=== PATIENT | female | born 1960 | race American Indian/Alaskan Native ===

== ENCOUNTER 2022-02-27 12:25 | Emergency (ER) | payer OTHER, MEDICARE ==
[2022-02-27] MEDS ORDERED: diazePAM 10 MG/2 ML SYRINGE IM ONE (16:34)
[2022-02-27] MEDS ORDERED: KETOROLAC 10 MG TAB PO ONE (16:34)
[2022-02-27] MEDS ORDERED: dexAMETHasone 4 MG/ML VIAL PO ONE (16:34)
--- NOTE | 2022-02-27 17:42 | Emergency Department Report ---
ED Back Pain/Injury HPI - General Chief Complaint: Back Pain/Injury Stated Complaint: BACK PAIN Time Seen by Provider: 02/27/22 15:41 Source: patient Limitations: No Limitations - History of Present Illness Initial Comments: 61-year-old black female with a past medical history of hypertension, hyperlipidemia, prediabetes, mitral valve prolapse, and hypothyroidism presents to the emergency department for evaluation of lower back pain. She states that she was doing some work inside of her closet on Thursday, got up and turned around, then started to have right lower back pains since then. She states that pain radiated down her left leg and was 10 out of 10 and constant. She states that she was seen at [facility] a few days ago, was started on Flexeril and a Medrol Dosepak, had some improvement in the pain for a few days, but pain has returned. She denies any injury or trauma. She denies fever, dysuria, abdominal pain, nausea, vomiting, and vaginal discharge. MD Complaint: back pain -: Gradual, days(s) (6) Similar Symptoms Previously: No Place: home Radiation: left leg Severity: severe Severity scale (0 -10): 10 Quality: aching Consistency: intermittent (States that she only has pain if she twists or bends) Worsens With: movement Associated Symptoms: denies: weakness, difficulty walking, difficulty urinating, diaphoresis, incontinence, fever/chills, headaches, abdominal pain, loss of appetite, malaise, nausea/vomiting, shortness of breath Treatments Prior to Arrival: other (Flexeril and Medrol Dosepak) - Related Data Home Medications Medication Instructions Recorded Confirmed Last Taken Atenolol 50 mg PO DAILY 03/25/15 03/25/15 Unknown Levothyroxine 75 mcg PO DAILY 03/25/15 03/25/15 Unknown Lexapro 20 mg PO DAILY 03/25/15 03/25/15 Unknown Omeprazole 20 mg PO DAILY 03/25/15 03/25/15 Unknown Simvastatin 20 mg PO HS 03/25/15 03/25/15 Unknown Previous Rx's Medication Instructions Recorded Last Taken Type Aspirin [Aspirin BABY CHEW TAB] 81 mg PO QDAY #30 tab.chew 04/15/14 Unknown Rx Ibuprofen [Motrin] 600 mg PO Q8H PRN #30 tablet 04/13/16 Unknown Rx Oxycodone HCl/Acetaminophen 1 each PO Q6HR PRN #20 tablet 04/13/16 Unknown Rx [Percocet 10/325 mg] Lidocaine [Lidoderm] 1 each TP DAILY PRN #10 patch 02/27/22 Unknown Rx Naproxen [Naprosyn] 500 mg PO BID #14 tab 02/27/22 Unknown Rx methOCARBAMOL [Robaxin TAB] 750 mg PO Q8H PRN #30 tab 02/27/22 Unknown Rx Allergies Allergy/AdvReac Type Severity Reaction Status Date / Time neomycin [Neomycin] Allergy Unknown Verified 04/15/14 10:58 ivp dye Allergy Swelling Uncoded 03/25/15 11:46 ED Review of Systems ROS: Stated complaint: BACK PAIN Other details as noted in HPI Comment: All other systems reviewed and negative Constitutional: denies: chills, fever, malaise, weakness Respiratory: denies: shortness of breath Gastrointestinal: denies: abdominal pain, nausea, vomiting Genitourinary: denies: urgency, dysuria, frequency, hematuria, discharge Musculoskeletal: back pain Neurological: denies: headache, weakness, numbness, paresthesias, abnormal gait, vertigo ED Past Medical Hx - Past Medical History Hx Heart Attack/AMI: Yes (MVP) Hx Diabetes: Yes Hx GERD: Yes Hx Psychiatric Treatment: Yes (Depression) Additional medical history: GERD, High Cholesterol, Thyroid Disease - Surgical History Additional Surgical History: Hysterectomy - Social History Smoking Status: Current Every Day Smoker Substance Use Type: None - Medications Home Medications: Home Medications Medication Instructions Recorded Confirmed Last Taken Type Aspirin [Aspirin BABY CHEW TAB] 81 mg PO QDAY #30 tab.chew 04/15/14 03/25/15 Unknown Rx Atenolol 50 mg PO DAILY 03/25/15 03/25/15 Unknown History Levothyroxine 75 mcg PO DAILY 03/25/15 03/25/15 Unknown History Lexapro 20 mg PO DAILY 03/25/15 03/25/15 Unknown History Omeprazole 20 mg PO DAILY 03/25/15 03/25/15 Unknown History Simvastatin 20 mg PO HS 03/25/15 03/25/15 Unknown History Ibuprofen [Motrin] 600 mg PO Q8H PRN #30 tablet 04/13/16 Unknown Rx Oxycodone HCl/Acetaminophen 1 each PO Q6HR PRN #20 tablet 04/13/16 Unknown Rx [Percocet 10/325 mg] Lidocaine [Lidoderm] 1 each TP DAILY PRN #10 patch 02/27/22 Unknown Rx Naproxen [Naprosyn] 500 mg PO BID #14 tab 02/27/22 Unknown Rx methOCARBAMOL [Robaxin TAB] 750 mg PO Q8H PRN #30 tab 02/27/22 Unknown Rx ED Physical Exam - General Limitations: No Limitations General appearance: alert, in no apparent distress - Head Head exam: Present: atraumatic, normocephalic - Eye Eye exam: Present: normal appearance. Absent: conjunctival injection, periorbital swelling, periorbital tenderness - Neck Neck exam: Present: normal inspection. Absent: tenderness, lymphadenopathy - Respiratory Respiratory exam: Present: normal lung sounds bilaterally. Absent: respiratory distress - Cardiovascular Cardiovascular Exam: Present: bradycardia, normal heart sounds - GI/Abdominal GI/Abdominal exam: Present: soft, normal bowel sounds. Absent: distended, tenderness, guarding, rebound, rigid - Extremities Exam Extremities exam: Present: normal inspection, normal capillary refill - Back Exam Back exam: Present: normal inspection, tenderness (Right lower only). Absent: CVA tenderness (R), CVA tenderness (L), vertebral tenderness - Expanded Back Exam Expanded Back exam: Absent: saddle anesthesia Back exam: Positive Straight Leg Raise: Right - Neurological Exam Neurological exam: Present: alert, oriented X3 - Psychiatric Psychiatric exam: Present: normal affect, normal mood - Skin Skin exam: Present: warm, dry, intact, normal color ED Course Vital Signs 02/27/22 02/27/22 12:58 18:00 Temperature 98.9 F 98.5 F Pulse Rate 57 L 88 Respiratory 18 16 Rate Blood Pressure 131/83 126/94 [Left] O2 Sat by Pulse 99 100 Oximetry - Reevaluation(s) Reevaluation #1: 02/27/22 17:43 Patient states that back pain has resolved and she does not have time to stay for the results of her urinalysis. ED Medical Decision Making - Medical Decision Making 61-year-old black female with a past medical history of hypertension, hyperlipidemia, prediabetes, mitral valve prolapse, and hypothyroidism presents to the emergency department for evaluation of lower back pain. She states that she was doing some work inside of her closet on Thursday, got up and turned arun und, then started to have right lower back pains since then. She states that pain radiated down her left leg and was 10 out of 10 and constant. She states that she was seen at [facility] a few days ago, was started on Flexeril and a Medrol Dosepak, had some improvement in the pain for a few days, but pain has returned. She denies any injury or trauma. She denies fever, dysuria, abdominal pain, nausea, vomiting, and vaginal discharge. Pain resolved after medication. Patient be discharged home with Medrol Dosepak, Robaxin, naproxen, and Lidoderm patches to use as directed. She is advised to follow-up with her primary care provider if no improvement or worsening symptoms. Patient stated that she did not have time to wait for the results of her urinalysis. She is advised to return to the emergency department as needed. She verbalizes understanding of and agreement with plan of care. Critical care attestation.: If time is entered above; I have spent that time in minutes in the direct care of this critically ill patient, excluding procedure time. ED Disposition Clinical Impression: Back pain Qualifiers: Back pain location: low back pain Chronicity: acute Back pain laterality: right Sciatica presence: with sciatica Sciatica laterality: sciatica of right side Qualified Code(s): M54.41 - Lumbago with sciatica, right side Disposition: 01 HOME / SELF CARE / HOMELESS Is pt being admited?: No Does the pt Need Aspirin: No Condition: Stable Instructions: Acute Back Pain, Adult, Sciatica, [id number] Additional Instructions: Take medications as prescribed. Follow-up with primary care provider if no improvement or worsening symptoms. Return to the emergency department as needed. Prescriptions: Lidocaine [Lidoderm] 1 each TP DAILY PRN #10 patch PRN Reason: Pain, Moderate (4-6) Naproxen [Naprosyn] 500 mg PO BID #14 tab methOCARBAMOL [Robaxin TAB] 750 mg PO Q8H PRN #30 tab PRN Reason: Pain, Moderate (4-6) Referrals: ANGELA GUZMAN MD [Staff Physician] - 3-5 Days Time of Disposition: 17:45
[2022-02-27 18:11] VITALS: BP 126/94
[2022-02-27 22:19] LABS: Bilirubin,Urine Negative (Negative); Blood,Urine Negative (Negative); Color,Urine Yellow (Yellow); Protein,Urine <15 mg/dL mg/dL (Negative); Urobilinogen,Urine 0.2 mg/dL (<2.0)
[2022-02-27 22:23] LABS: Mucus,Urine 2+ /HPF
== END 2022-02-27 18:11 | disposition home or self-care (01) ==
LOC: ED 12:25
DX: M54.50 Low back pain, unspecified (principal); I21.9 Acute myocardial infarction, unspecified; E11.9 Type 2 diabetes mellitus without complications; K21.9 Gastro-esophageal reflux disease without esophagitis; F32.A Depression, unspecified; F17.200 Nicotine dependence, unspecified, uncomplicated; Z91.09 Other allergy status, other than to drugs and biological substances; Z79.899 Other long term (current) drug therapy
CPT/HCPCS: 81001; 96372; 99283; J1100; J3360